=== PATIENT | male | born 1945 | race Caucasian/White ===

== ENCOUNTER 2018-08-31 12:26 | Emergency (ER) | payer MEDICARE, BC ==
[~2018-08-31] VITALS: Ht 170.2 cm; Wt 63.5 kg
[2018-08-31] MEDS ORDERED: TDAP DIPH,PERTUSS,TET VAC/PF 0.5 ML DISP.SYRIN IM ONE ×2 (12:45→12:50)
[2018-08-31] MEDS ORDERED: HYDROCODONE/APAP 5-325MG TABLET PO ONE (12:45)
[2018-08-31] MEDS ORDERED: HYDROCODONE/APAP 5-325MG TABLET ONE (12:50)
[2018-08-31] MEDS ORDERED: LIDOCAINE HCL 1% 20 ML VIAL ONE (13:00)
--- NOTE | 2018-08-31 13:09 | NUR ---
Out for lunch, endorsed to DOUGLAS Martines accordingly.
[2018-08-31] MEDS ORDERED: LIDOCAINE HCL 1% 20 ML VIAL IJ ONE (13:15)
--- NOTE | 2018-08-31 14:00 | NUR ---
Patient discharged to home in stable conditon. Written and verbal after care instructions given to patient and patient's adult son. Patient and family verbalized understanding of instructions.
== END 2018-08-31 14:02 | disposition home or self-care (01) ==
LOC: ER 12:26
DX: S62.617A Displaced fracture of proximal phalanx of left little finger, initial encounter for closed fracture (principal); S63.255A Unspecified dislocation of left ring finger, initial encounter; L02.512 Cutaneous abscess of left hand; I10 Essential (primary) hypertension; W01.0XXA Fall on same level from slipping, tripping and stumbling without subsequent striking against object, initial encounter; Y93.89 Activity, other specified; Y92.89 Other specified places as the place of occurrence of the external cause; Y99.8 Other external cause status
CPT/HCPCS: 26010; 26770; 29125; 73130; 73140; 90471; 90715; 99284; J3490; A4663